=== PATIENT | male | born 1970 | race Two or more races ===

== ENCOUNTER → 2024-04-09 09:55 | Outpatient (BNVA) | payer OTHER, SELFPAY | DX: H60.92 Unspecified otitis externa, left ear (principal); M25.512 Pain in left shoulder; Z23 Encounter for immunization; R06.02 Shortness of breath; H61.21 Impacted cerumen, right ear; R09.81 Nasal congestion | CPT/HCPCS: 90471; 90656; 96127 ==

== ENCOUNTER → 2024-04-09 09:55 | Outpatient (AMB) | payer OTHER, SELFPAY ==
--- NOTE | 2024-04-09 10:04 | MHC.PC.OV ---
Vital Signs 04/09/24 10:04 Height 5 ft 7 in Weight 196 lb 2 oz BMI 30.7 BP 144/80 H Blood Pressure Location Lt brachial Position Sitting Pulse 75 Pulse Source Pulse Oximeter Temp 97.3 F Temp Source Temporal Artery Scan Pulse Oximetry (%) 97 Oxygen Delivery Method Room Air Intake Visit Reasons: New PT Intake Note: Patient is a new patient here to establish care for ?Asthma, SOB. Pt has not seen a PCP in over 5 years. Wheel Cleaner Required: No Accompanied by: Self / Same As Patient Allergies No Known Allergies Allergy (Unverified 04/09/24 10:14) Medication List - Last Reconciled 04/09/24 by SAVANAH Monsalve No Known Home Meds Tobacco use date assessed: 04/09/24 Dental Screening Dental Screen Date: 04/09/24 Did you have a dental visit in the last 12 months?: No Did you have a dental problem in the last 6 months where you did not have access to dental care?: No Was dental information given to patient?: Patient has dentist HPI New PT HPI Details Previous PCP: years ago, cannot remember Last visit: in awhile Last PE: cannot remember Specialist: n/a OBGYN:n/a Past medical history: Denies Medications: Denies taking any medication Family HX: father passed from leukemia in his 40s Problem: The patient is a 53-year-old male with no significant past medical history The patient is presenting to [facility] care Reports that he has been to the doctors in a while and can not remember when was his last physical exam Reports that yesterday was shoveling snow and he noted some shortness of breath Reports that in the past he went to urgent care for respiratory issues and they told him that he was wheezing He was given prednisone with positive effects The patient reports that he noticed that his shortness of breath seems to correlate with cold weather and triggers a cough as well Left shoulder: Reports that a soreness intermittently to posterior left shoulder and the trapezius region Patient reports that he sleeps on that side mostly but he is not sure if it is muscular heartburn: The patient reports heartburn with certain types of foods, occurs 2 to 3 times a week Reports that he has used Zantac with some relief and has been trying not to eat close to bedtime recently he did 14 days on prilosec and he has not had heartburn for a while since. On exam: right ear is completely blocked with wax, left ear with some build up of wax and red irritated area-reports pain with pulling on left ear. reports that right ear hurts some times when he goes in the pool. Reports nasal congestion intermittently and coughing in the mornings at times will order Debrox ear drops for right ear and ofloxacin drops to left ear [facility] Social History Housing: Apartment Patient Tobacco Use Status: Never used Tobacco e-Cigarette/Vaping Use: Never Used service: Yes ([employer]) Current occupational status: employed Cognitive needs: No Hearing needs: No Vision needs: No Questionnaire PHQ-9 Over the last 2 weeks, how often have you been bothered by any of the following problems? 1. Little interest or pleasure in doing things: not at all 2. Feeling down, depressed, or hopeless: not at all 3. Trouble falling or staying asleep, or sleeping too much: not at all 4. Feeling tired or having little energy: not at all 5. Poor appetite or overeating: not at all 6. Feeling bad about yourself - or that you are a failure or have let yourself or your family down: not at all 7. Trouble concentrating on things, such as reading the newspaper or watching television: not at all 8. Moving or speaking so slowly that other people could have noticed. Or the opposite - being so fidgety or restless that you have been moving around a lot more than usual: not at all 9. Thoughts that you would be better off or of hurting yourself in some way: not at all Total score: 0 Depression Screening Interpretation: Negative Depression Screening Done: Yes 32341 - PHQ-9 Billing: Yes Source: Developed by Drs. Phong Zapata, Sapna Blake, Toney Claudio and colleagues, with an educational augustina from [employer]. Thrive Questionnaire Date Thrive assessed: 04/09/24 I am a: Patient What is your living situation today?: I have a steady place to live Within the past 12 months, did the food you bought not last and you didn't have the money to get more?: Never true Within the past 12 months, did you worry whether your food would run out before you got money to buy more?: Never true Do you have trouble paying for medicines?: No Do you have trouble getting transportation to medical appointments?: No Do you have trouble paying your heating and electricity bill?: No Do you have trouble taking care of your child, family member or friend?: No Do you have trouble with day-to-day activities such as bathing, preparing meals, shopping, managing finances, etc.?: No Are you currently unemployed and looking for a job?: No Are you interested in more education?: No Please select the resources that you would like help with: None Currently or been in a relationship where the following occur: No concerns reported THRIVE Score: 0 AUDIT C Alcohol Use Questionnaire (AUDIT-C) 1. How often do you have a drink containing alcohol?: Monthly or less 2. How many drinks containing alcohol do you have on a typical day when you are drinking?: 3 or 4 3. How often do you have six or more drinks on one occasion?: Never Total Score: 2 KAREN-7 AMB Questionnaire KAREN-7 Date KAREN - 7 assessed: 04/09/24 Feeling nervous, anxious, or on edge: 0 = Not at all Not being able to stop or control worryin = Not at all Worrying too much about different things: 0 = Not at all Trouble relaxin = Several days Being so restless that it is hard to sit still: 0 = Not at all Becoming easily annoyed or irritable: 0 = Not at all Feeling afraid as if something awful might happen: 0 = Not at all Total KAREN-7 score (0-4 normal; 5-9 mild; 10-14 moderate; 15-21 severe): 1 Source: Developed by Drs. Phong Zapata, Sapna Blake, Toney Claudio and colleagues, with an educational augustina from [employer]. KAREN-7 Assessment Billing KAREN-7 Assessment Tool: KAREN-7 Assessment 37575 Review of Systems Const Details: Denies chills, Denies fatigue, Denies fever(s), Denies headache(s) and Denies weakness HEENT Denies change in vision, Denies dizziness, Denies headache(s), Denies hearing loss, +pain with pulling on left ear, intermittent nasal congestion, Denies sinus pain, Denies sinus pressure and Denies sore throat Card Denies chest pain, Denies lightheadedness, reports sob with exertion (noticed when he was showeling show and cool weather) and Denies other (palpitations) Resp + cough intermittently in the mornings, reports sob with exertion (noticed when he was showeling show and cool weather) and Denies wheezing GI Denies abdominal pain, Denies melena, Denies hematochezia, Denies change in bowel habits, +dyspepsia (intermittent heartburn with certain foods) and Denies nausea Denies hematuria and Denies dysuria Musc Denies abnormal gait, +myalgias (Reports that a soreness intermittently to posterior left shoulder and the trapezius region) +arthralgias-left shoulder, Denies numbness and Denies tingling Skin/Breast Denies rash, Denies unusual bruising and Denies wounds Neuro Denies abnormal gait, Denies dizziness, Denies headache(s), Denies memory loss, Denies numbness, Denies Sensory deficit (Neuro), Denies tingling and Denies weakness Psych Denies anxiety, Denies depression and Denies memory loss Endo Denies cold intolerance, Denies fatigue, Denies heat intolerance, Denies polydipsia and Denies polyuria Darren/Lymph Denies easy bleeding and Denies easy bruising Aller/Immun Denies wheezing Physical exam (Primary Care) Vital Signs: Last Vital Signs Temp 97.3 F 04/09/24 10:04 Pulse 75 04/09/24 10:04 BP 144/80 H 04/09/24 10:04 Pulse Ox 97 04/09/24 10:04 Oxygen Delivery Method Room Air 04/09/24 10:04 BMI result Body Mass Index 30.7 Tobacco/Smoking Status: Tobacco use Status Tobacco use date assessed 04/09/24 04/09/24 10:11 Patient Tobacco Use Status Never used Tobacco 04/09/24 10:11 e-Cigarette/Vaping Use Never Used 04/09/24 10:11 PHQ-9: PHQ-9 Score PHQ-9: Total score 0 04/09/24 10:26 Depression Screening Interpretation: Negative Thrive Assessment: Date of Thrive Assessment Date Thrive assessed 04/09/24 04/09/24 10:05 Currently or been in a relationship where the following occur: No concerns reported Const Other: General: no acute distress, well developed, alert and awake Nutritional Appearance: well nourished Orientation/consciousness: patient oriented x3 HENMT Head: Yes normocephalic and Yes atraumatic Ears: hearing grossly normal bilaterally Other: right ear blocked with cerumen, left ear canal with dried up, brown cerumen and irritated, erythema area General nose exam: Normal external nose present and bilateral nares erythematous with boggy turbinates Mouth: Normal oral and palatal mucosa present and moist mucous membranes Teeth and gingiva: dentition normal Throat: Yes oropharynx normal Eyes Pupils: Equal, round and reactive pupils present and Pupil accommodation reflex normal EOM: EOMs intact bilaterally Neck Neck: Yes normal visual inspection, Yes no lymphadenopathy and Yes trachea midline Thyroid: Thyroid normal Carotids: no bruits Lymphatic: no lymphadenopathy noted Resp Effort & Inspection: normal respiratory effort Auscultation: clear to auscultation bilaterally Cardio Rate: regular rate Rhythm: regular rhythm Heart sounds: S1 normal heart sound present, S2 normal heart sound present, no gallops, no murmurs and no rubs GI Palpation (GI): Abdomen is soft and nontender to palpation Auscultation: normal bowel sounds General: Yes no CVA tenderness Back/Spine/Pelvis Back: no CVA tenderness Cervical Spine: cervical ROM normal and No Cervical spine tenderness Thoracic/Lumbar Spine: No lumbar spinal tenderness Other: Left shoulder +ROM, no edema, no erythema, negative empty can test and cross shoulder test Skin General: warm and dry. Normal skin color. Normal skin turgor Lesions: no lesions Nails: normal Extrem General: Yes normal to inspection, No edema and No calf tenderness Psych Appearance: grossly normal Affect: normal affect Attitude: cooperative Thought process: Normal thought process present Office Procedures Flu Questionnaire Does the patient have a severe egg allergy?: No Does the patient have severe life threatening allergies?: No Does the patient have a fever or illness today?: No Has the patient ever had Guillain-[place] Syndrome?: No Has the patient ever had any past reaction to a flu shot?: No Immunizations Fluarix Triv [id number] (PF) 45 mcg (15 mcg x 3)/0.5 mL IM syringe Performing Provider: SAVANAH Monsalve Performing Location[place] [facility] Administered by: QUAN Stovall on 04/09/24 10:07 Dose Route Admin Location Dispensed Lot Number Expiration Date NDC Grease Packer 0.5 mL IM Left Deltoid 0.5 mL [id number] 08/30/24 [id number] [employer] VIS Given Date VIS Provided VIS Publication Date 04/09/24 Single Vaccine 20 Eligibility Eligibility Date Funding Source Not [facility] Eligible 04/09/24 Private Coding Level of Care Code New Pt Level 4 (73205) Diagnoses Otitis externa of left ear, unspecified chronicity, unspecified type H60.92 Otitis externa type: unspecified type Chronicity: unspecified Laterality: left Left shoulder pain, unspecified chronicity M25.512 Chronicity: unspecified SOB (shortness of breath) on exertion R06.02 Right ear impacted cerumen H61.21 Nasal congestion R09.81 Additional Codes KAREN-7 Assessment Billing - KAREN-7 Assessment Tool: KAREN-7 Assessment 99254 ([id number]) PHQ-9 - 14932 - PHQ-9 Billing: Yes ([id number]) Time Spent (min) 34 Assessment & Plan Assessment & Plan (1) Otitis externa: Code(s): H60.90 - Unspecified otitis externa, unspecified ear Category: Medical Qualifiers: Otitis externa type: unspecified type Chronicity: unspecified Laterality: left Qualified Code(s): H60.92 - Unspecified otitis externa, left ear Plan: left ear with some build up of wax and red irritated area-reports pain with pulling on left ear Ofloxacin eardrops b.i.d. (2) Left shoulder pain: Code(s): M25.512 - Pain in left shoulder Category: Medical Qualifiers: Chronicity: unspecified Qualified Code(s): M25.512 - Pain in left shoulder Plan: No red flags noted. Appears to be muscular. Encourage patient to modify activity like not sleeping on the left side May use warm compresses as needed with 20 minutes on and off technique. May use NSAIDs as needed. Contact office if pain worsens or not relenting (3) SOB (shortness of breath) on exertion: Code(s): R06.02 - Shortness of breath Category: Medical Plan: Reports that yesterday was shoveling snow and he noted some shortness of breath Reports that in the past he went to urgent care for respiratory issues and they told him that he was wheezing He was given prednisone with positive effects The patient reports that he noticed that his shortness of breath seems to correlate with cold weather and triggers a cough as well Albuterol sulfate 90 mcg/actuation 2 inhalation Q 4-6 hours as needed Contact the office if symptoms becomes more frequent (4) Right ear impacted cerumen: Code(s): H61.21 - Impacted cerumen, right ear Category: Medical Plan: Encouraged the patient to get debrox ear drops otc for right ear. The patient right ear is completely blocked. Will re-assess when the patient return for physical evaluation. (5) Nasal congestion: Code(s): R09.81 - Nasal congestion Category: Medical Plan fluticasone propionate 50 mcg/actuatin 1 spray intranasal bid Orders: Orders Lipid Panel 04/09/24 Z00.00 - Encounter for general adult medical examination without abnormal findings TSH reflex Free T4 04/09/24 Z00.00 - Encounter for general adult medical examination without abnormal findings Influenza [id number] Immunization 04/09/24 Z23 - Encounter for immunization Complete Blood Count Auto Diff 04/09/24 Z00.00 - Encounter for general adult medical examination without abnormal findings Comprehensive [place]. Panel Fast 04/09/24 Z00.00 - Encounter for general adult medical examination without abnormal findings Vitamin D 25-OH Total 04/09/24 Z00.00 - Encounter for general adult medical examination without abnormal findings UA CC w/rflx Micro + Cult 04/09/24 Z00.00 - Encounter for general adult medical examination without abnormal findings PSA,Total (Free>4and<10) 04/09/24 Z00.00 - Encounter for general adult medical examination without abnormal findings Glucose Fasting 04/09/24 Z00.00 - Encounter for general adult medical examination without abnormal findings Medications: New fluticasone propionate 50 mcg/actuation administer into each nostril 1 spray intranasal BID 16 grams 2RF ofloxacin 0.3% 10 drps otic (ears) BID 14 days 10 mL 0RF albuterol sulfate 90 mcg/actuation 2 inhalations inhalation Q4-6H PRN 1 ea 1RF shortness of breath or wheezing
== END | disposition home or self-care (01) ==

== ENCOUNTER 2024-04-16 07:21 | Outpatient (REF) | payer OTHER, SELFPAY ==
[2024-04-16 07:35] LABS: MANUAL DIFF FLAG NO
[2024-04-16 07:50] LABS: Basophils Percent Auto 0.5 % (0-2); Eosinophils Absolute Auto 0.1 X10*3/uL (0.0-0.4); Hematocrit 41.5 % (42.0-52.0); Hemoglobin 14.8 g/dl (14.0-18.0); Imm Gran Abs Auto 0.02 X10*3/uL (0.00-0.03); Imm Gran Pct Auto 0.3 % (0.0-0.4); Lymphocytes Absolute Auto 1.7 X10*3/uL (1.2-4.9); Lymphocytes Percent Auto 27.1 % (20-40); Mean Corpuscular HGB Conc 35.7 g/dl (31.0-36.0); Mean Corpuscular Hemoglobin 30.7 pg (27.0-33.0); Mean Corpuscular Volume 86.1 fL (80.0-98.0); Mean Platelet Volume 9.7 fL (9.4-12.4); Monocytes Absolute Auto 0.7 X10*3/uL (0.1-1.2); Monocytes Percent Auto 10.7 % (2-11); Neutrophils Absolute Auto 3.8 x10*3/uL (2.0-8.3); Neutrophils Percent Auto 60.4 % (45-73); Platelet Count 260 X10*3/uL (160-400); Red Blood Count 4.82 X10*6/uL (4.60-5.80); Red Cell Distribution Width 12.8 % (11.0-16.0); White Blood Count 6.3 X10*3/uL (4.8-10.8)
[2024-04-16 08:08] LABS: Appearance Urine Clear; Color Urine Yellow; Glucose Urine UA 250 mg/dL (Negative); Leukocyte Esterase Urine Negative (Negative); Nitrite Urine Negative (Negative); PH 5.5 (5.0-9.0); Urine Blood Negative (Negative); Urine Ketones Negative (Negative); Urine Protein Negative (Neg-Trace)
[2024-04-16 08:16] LABS: Alanine Aminotransferase 27 U/L (0-40); Albumin Level 4.6 g/dL (3.5-5.0); Alkaline Phosphatase 60 U/L (39-117); Anion Gap 12 (12-20); Aspartate Amino Transferase 19 U/L (5-37); Bilirubin Total 0.4 mg/dL (0.0-1.0); Blood Urea Nitrogen 12 mg/dL (9-16); Calcium 9.2 mg/dL (8.4-10.2); Carbon Dioxide 22 mmol/L (22-29); Chloride 106 mmol/L (96-108); Cholesterol 208 mg/dL (<200); Estimated Glomerular Filt Rate > 60; Glucose Fasting 197 mg/dL (60-99); HDL Cholesterol 41 mg/dL (>40); LDL Cholesterol Calculated 149 mg/dL (<100); Potassium 4.2 mmol/L (3.3-5.1); Sodium 136 mmol/L (135-145); Triglycerides 90 mg/dL (<150)
[2024-04-16 08:34] LABS: TSH reflex Free T4 0.68 uIU/mL (0.32-4.0); Vitamin D 25-OH Total 18.6 ng/mL (>30)
== END 2024-04-16 07:22 | disposition home or self-care (01) ==
LOC: HO.LAB 07:21
DX: Z00.00 Encounter for general adult medical examination without abnormal findings (principal); Z12.5 Encounter for screening for malignant neoplasm of prostate; Z13.6 Encounter for screening for cardiovascular disorders
CPT/HCPCS: 36415; 80053; 80061; 81003; 82306; 84153; 84443; 85025

== ENCOUNTER 2024-04-23 09:25 | Outpatient (AMB) | payer OTHER, SELFPAY ==
--- OUTSIDE RECORDS SUMMARY | 2024-04-23 09:58 | XMS_ITS | Clinical Summary ---
Author Organization [facility] ity Address [address] [place] [address] Care Team Providers [employer] Name Role Phone Unavailable Primary Care Provider Unavailabl e Social History Tobacco Use Types Packs/Day Years Used Date Smoking Tobacco: Never Assessed Sex and Gender Information Value Date Recorded Sex Assigned at Not on file Legal Sex Male 4:18 AM EST Gender Identity Not on file Sexual Orientation Not on file Plan of Treatment Health Maintenance Due Date Last Done Comments DTaP,Tdap,and Td Vaccines (1 - Tdap) 1988 Hepatitis B Vaccines (1 of 3 - 19+ 3-dose series) 1988 Pneumococcal Vaccine: 50+ Ye ars (1 of 1 - PCV) 09/17/2019 Zoster Vaccines (1 of 2) 09/17/2019 COVID-19 Vaccine ( - 2023-2 5 season) 2023 Influenza Vaccine (#1) 2023 HIB Vaccines Aged Out No longer eligi ble based on patient's age to complete this topic HPV Vaccines Aged Out No longer eligi ble based on patient's age to complete this topic Hepatitis A Vaccines Aged Out No long er eligible based on patient's age to complete this topic IPV Vaccines Aged Out No longer eligi ble based on patient's age to complete this topic MMR Vaccines Aged Out No longer eligi ble based on patient's age to complete this topic Meningococcal ACWY Vaccine Aged Out N o longer eligible based on patient's age to complete this topic Meningococcal B Vacine Aged Out No lo nger eligible based on patient's age to complete this topic Pneumococcal Vaccine: Pediat rics (0 to 5 Years) and At-Risk Patients (6 to 64 Years) Aged Out No longer eligible b ased on patient's age to complete this topic RSV Immunization Patients Un edwige 20 months Aged Out No longer eligible b ased on patient's age to complete this topic Varicella Vaccines Aged Out No longer eligible based on patient's age to complete this topic
[2024-04-23 09:59] VITALS: BP 126/80; PULSE 78; TEMP 36.4; O2SAT 96; BMI 31.3
--- NOTE | 2024-04-23 09:59 | A.OFFPC_ITS ---
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 Accompanied by: Self / Same As Patient Allergies No Known Allergies Allergy (Verified 04/23/24 10:16) Medication List - Last Reconciled 04/23/24 by SAVANAH Monsalve albuterol sulfate 90 mcg/actuation 2 inhalations inhalation Q4-6H PRN fluticasone propionate 50 mcg/actuation 1 spray intranasal BID ofloxacin 0.3% 10 drps otic (ears) BID 14 days Tobacco use date assessed: 04/23/24 Dental Screening Dental Screen Date: 04/23/24 Did you have a dental visit in the last 12 months?: No Did you have a dental problem in the last 6 months where you did not have access to dental care?: No Was dental information given to patient?: No HPI annual physical HPI Details Dentist: josie will make an appt Eye: reports that he had not done one in awhile Snellen: Right: Left: Corrected vision: STI screening: Colonoscopy:josie will order Pap Smer: PHQ-9: Flu: up to date COVID: x2 Tdap: 2023 Diet: regular, trying to cut back Exercise: will start back going to the gym Patient is a 53-year-old male presenting for an annual physical Review labs and screening with the patient The patient fasting glucose was 197 A1c done in office 9.8% The patient was informed that he is diabetic and was started on metformin a 1000 mg b.i.d. [facility] Medical History (Updated 04/25/24 @ 22:37 by SAVANAH Monsalve) Heart burn Social History Housing: Apartment Patient Tobacco Use Status: Never used Tobacco e-Cigarette/Vaping Use: Never Used service: Yes ([employer]) Current occupational status: employed Cognitive needs: No Hearing needs: No Vision needs: No Questionnaire PHQ-9 Over the last 2 weeks, how often have you been bothered by any of the following problems? 1. Little interest or pleasure in doing things: not at all 2. Feeling down, depressed, or hopeless: not at all 3. Trouble falling or staying asleep, or sleeping too much: not at all 4. Feeling tired or having little energy: not at all 5. Poor appetite or overeating: not at all 6. Feeling bad about yourself - or that you are a failure or have let yourself or your family down: not at all 7. Trouble concentrating on things, such as reading the newspaper or watching television: not at all 8. Moving or speaking so slowly that other people could have noticed. Or the opposite - being so fidgety or restless that you have been moving around a lot more than usual: not at all 9. Thoughts that you would be better off or of hurting yourself in some way: not at all Total score: 0 Depression Screening Interpretation: Negative Depression Screening Done: Yes 89624 - PHQ-9 Billing: Yes Source: Developed by Drs. Phong Zapata, Sapna Blake, Toney Claudio and colleagues, with an educational augustina from [employer]. Thrive Questionnaire Date Thrive assessed: 04/23/24 I am a: Patient What is your living situation today?: I have a steady place to live Within the past 12 months, did the food you bought not last and you didn't have the money to get more?: Never true Within the past 12 months, did you worry whether your food would run out before you got money to buy more?: Never true Do you have trouble paying for medicines?: No Do you have trouble getting transportation to medical appointments?: No Do you have trouble paying your heating and electricity bill?: No Do you have trouble taking care of your child, family member or friend?: No Do you have trouble with day-to-day activities such as bathing, preparing meals, shopping, managing finances, etc.?: No Are you currently unemployed and looking for a job?: No Are you interested in more education?: No Please select the resources that you would like help with: None Currently or been in a relationship where the following occur: No concerns reported THRIVE Score: 0 AUDIT C Alcohol Use Questionnaire (AUDIT-C) 1. How often do you have a drink containing alcohol?: Monthly or less 2. How many drinks containing alcohol do you have on a typical day when you are drinking?: 3 or 4 3. How often do you have six or more drinks on one occasion?: Never Total Score: 2 KAREN-7 AMB Questionnaire KAREN-7 Date KAREN - 7 assessed: 04/23/24 Feeling nervous, anxious, or on edge: 0 = Not at all Not being able to stop or control worryin = Not at all Worrying too much about different things: 0 = Not at all Trouble relaxin = Several days Being so restless that it is hard to sit still: 0 = Not at all Becoming easily annoyed or irritable: 0 = Not at all Feeling afraid as if something awful might happen: 0 = Not at all Total KAREN-7 score (0-4 normal; 5-9 mild; 10-14 moderate; 15-21 severe): 1 Source: Developed by Drs. Phong Zapata, Sapna Blake, Toney Claudio and colleagues, with an educational augustina from [employer]. KAREN-7 Assessment Billing KAREN-7 Assessment Tool: KAREN-7 Assessment 26219 Review of Systems Const Details: Denies chills, Denies fatigue, Denies fever(s), Denies headache(s) and Denies weakness HEENT Denies change in vision, Denies dizziness, Denies headache(s), Denies hearing loss, Denies nasal congestion, Denies sinus pain, Denies sinus pressure and Denies sore throat Card Denies chest pain, Denies lightheadedness, + mild dyspnea when shoveling in the snow and Denies other (palpitations) Resp Denies cough, Denies dyspnea and Denies wheezing GI Denies abdominal pain, Denies melena, Denies hematochezia, Denies change in bowel habits, +dyspepsia (infrequent) and Denies nausea Denies hematuria and Denies dysuria Musc Denies abnormal gait, Denies myalgias, +arthralgias (mild soreness to left shoulder), Denies numbness and Denies tingling Skin/Breast Denies rash, Denies unusual bruising and Denies wounds Neuro Denies abnormal gait, Denies dizziness, Denies headache(s), Denies memory loss, Denies numbness, Denies Sensory deficit (Neuro), Denies tingling and Denies weakness Psych Denies anxiety, Denies depression and Denies memory loss Endo Denies cold intolerance, Denies fatigue, Denies heat intolerance, Denies polydipsia and Denies polyuria Darren/Lymph Denies easy bleeding and Denies easy bruising Aller/Immun Denies wheezing Physical exam (Primary Care) Vital Signs: Last Vital Signs Temp 97.5 F 04/23/24 09:59 Pulse 78 04/23/24 09:59 BP 126/80 04/23/24 09:59 Pulse Ox 96 04/23/24 09:59 Oxygen Delivery Method Room Air 04/23/24 09:59 BMI result Body Mass Index 31.3 Tobacco/Smoking Status: Tobacco use Status Tobacco use date assessed 04/23/24 04/23/24 10:04 Patient Tobacco Use Status Never used Tobacco 04/23/24 10:04 e-Cigarette/Vaping Use Never Used 04/23/24 10:04 PHQ-9: PHQ-9 Score PHQ-9: Total score 0 04/23/24 23:20 Depression Screening Interpretation: Negative Thrive Assessment: Date of Thrive Assessment Date Thrive assessed 04/23/24 04/23/24 10:04 Currently or been in a relationship where the following occur: No concerns reported Const Other: General: no acute distress, well developed, alert and awake Nutritional Appearance: well nourished Orientation/consciousness: patient oriented x3 HENMT Head: Yes normocephalic and Yes atraumatic Ears: hearing grossly normal bilaterally and TM's normal bilaterally General nose exam: Normal external nose present and Normal nares present Mouth: Normal oral and palatal mucosa present and moist mucous membranes Teeth and gingiva: dentition normal Throat: Yes oropharynx normal Eyes Pupils: Equal, round and reactive pupils present and Pupil accommodation reflex normal EOM: EOMs intact bilaterally Neck Neck: Yes normal visual inspection, Yes no lymphadenopathy and Yes trachea midline Thyroid: Thyroid normal Carotids: no bruits Lymphatic: no lymphadenopathy noted Chest Chest palpation & inspection: normal inspection of the chest Resp Effort & Inspection: normal respiratory effort Auscultation: clear to auscultation bilaterally Cardio Rate: regular rate Rhythm: regular rhythm Heart sounds: S1 normal heart sound present, S2 normal heart sound present, no gallops, no murmurs and no rubs Bruits: no abdominal aortic bruits and no carotid bruits GI Palpation (GI): No Abdominal aortic bruit present, Soft to palpation, nontender, No hepatosplenomegaly present and No Rebound tenderness present Auscultation: normal bowel sounds General: Yes no CVA tenderness Back/Spine/Pelvis Back: no CVA tenderness Cervical Spine: cervical ROM normal and No Cervical spine tenderness Thoracic/Lumbar Spine: thoraco-lumbar ROM normal, No pain with thoraco-lumbar ROM, No thoracic spinal tenderness and No lumbar spinal tenderness Skin General: warm and dry. Normal skin color. Normal skin turgor Lesions: no lesions Rashes: no rashes Trauma: no lacerations or abrasions Wounds: no wounds Nails: normal Neuro General: patient oriented x3, gait normal and CN's II-XI intact bilaterally Cranial nerves: Yes Equal, round and reactive pupils present Cognition (Neuro): normal cognition Gait exam (Neuro): Normal gait present Motor exam (neuro): 5/5 motor strength present throughout Sensory Exam: No Sensory deficit (Neuro) Deep tendon reflexes (DTR's): Right patellar reflex intensity grade: 2+ and Left patellar reflex intensity grade: 2+ Extrem General: Yes normal to inspection, No edema and No calf tenderness left: +ROM, no edema, no erythema, no red flags noted Psych Appearance: grossly normal Affect: normal affect Attitude: cooperative Thought process: Normal thought process present Results AMB Hemoglobin A1c AMB Hemoglobin A1c 9.8 % Last Edit by ALFA Coyle on 04/23/24 10 :34 Results Reviewed Results Reviewed: Laboratory Last Values Hgb A1c (Clinic) 9.8 % (4.0-6.0) H 04/23/24 10:25 Coding Level of Care Code Est Pt Prev Care 40-64y(95382) Diagnoses Annual physical exam Z00.00 Type 2 diabetes mellitus without complication, without long-term current use of insulin E11.9 Diabetes mellitus type: type 2 Diabetes mellitus alf insulin use: without long term care social worker use Diabetes mellitus complication status: without complication Left shoulder pain, unspecified chronicity M25.512 Chronicity: unspecified SOB (shortness of breath) on exertion R06.02 Nasal congestion R09.81 Vitamin D deficiency E55.9 Elevated LDL cholesterol level E78.00 Bilateral hearing loss due to cerumen impaction H61.23 Heart burn R12 Additional Codes KAREN-7 Assessment Billing - KAREN-7 Assessment Tool: KAREN-7 Assessment [id number] ([id number]) PHQ-9 - 23452 - PHQ-9 Billing: Yes ([id number]) Time Spent (min) 34 Assessment & Plan Assessment & Plan (1) Annual physical exam: Code(s): Z00.00 - Encounter for general adult medical examination without abnormal findings Category: Medical Plan: The patient is here for annual physical reviewed preventative guidelines and recent labs (2) Diabetes mellitus: Code(s): E11.9 - Type 2 diabetes mellitus without complications Category: Medical Qualifiers: Diabetes mellitus type: type 2 Diabetes mellitus long term care social worker insulin use: without long term care social worker use Diabetes mellitus complication status: without complication Qualified Code(s): E11.9 - Type 2 diabetes mellitus without complications Plan: The patient fasting glucose was 197 A1c done in office 9.8% The patient was informed that he is diabetic and was started on metformin a 1000 mg b.i.d. We will recheck labs in 3 months (3) Left shoulder pain: Code(s): M25.512 - Pain in left shoulder Category: Medical Qualifiers: Chronicity: unspecified Qualified Code(s): M25.512 - Pain in left shoulder Plan: No red flags noted. Appears to be muscular. Encourage patient to modify activity like not sleeping on the left side May use warm compresses as needed with 20 minutes on and off technique. May use NSAIDs as needed. Contact office if pain worsens or not relenting (4) SOB (shortness of breath) on exertion: Code(s): R06.02 - Shortness of breath Category: Medical Plan: Reports that in the past he went to urgent care for respiratory issues and they told him that he was wheezing He was given prednisone with positive effects The patient reports that he noticed that his shortness of breath seems to correlate with cold weather and triggers a cough as well Albuterol sulfate 90 mcg/actuation 2 inhalation Q 4-6 hours as needed Contact the office if symptoms becomes more frequent (5) Nasal congestion: Code(s): R09.81 - Nasal congestion Category: Medical Plan: Continue fluticasone propionate 50 mcg/actuation 1 spray nasally b.i.d. (6) Vitamin D deficiency: Code(s): E55.9 - Vitamin D deficiency, unspecified Category: Medical Plan: vitamin D 18.6 Started cholecalciferol 20 mcg daily We will recheck labs in 3 months (7) Elevated LDL cholesterol level: Code(s): E78.00 - Pure hypercholesterolemia, unspecified Category: Medical Plan: t 208/ldl 149 Discussed with the patient that he is at the range where medication can be started. The patient stated that he started making dietary changes and he is going start going back to the gym (8) Bilateral hearing loss due to cerumen impaction: Code(s): H61.23 - Impacted cerumen, bilateral Category: Medical Plan: cerumen impaction, but both TMs are visible. Encouraged the patient to continue using the debrox to soften the cerumen (9) Heart burn: Code(s): R12 - Heartburn Category: Medical Plan: The patient reports heartburn with certain types of foods, occurs 2 to 3 times a week Reports that he has used Zantac with some relief and has been trying not to eat close to bedtime recently he did 14 days on prilosec and he has not had heartburn for a while since. reinforced dietary restrictions Plan The patient to follow up 3 months and to complete blood work about 1 week before his next appt Orders: Orders AMB Hemoglobin A1c 04/23/ Z13.9 - Encounter for screening, unspecified Comprehensive [place]. Panel Fast 3 Months E55.9 - Vitamin D deficiency, unspecified, E78.00 - Pure hypercholesterolemia, unspecified Vitamin D 25-OH Total 3 Months E55.9 - Vitamin D deficiency, unspecified, E78.00 - Pure hypercholesterolemia, unspecified UA CC w/rflx Micro + Cult 3 Months E55.9 - Vitamin D deficiency, unspecified, E78.00 - Pure hypercholesterolemia, unspecified Lipid Panel 3 Months E55.9 - Vitamin D deficiency, unspecified, E78.00 - Pure hypercholesterolemia, unspecified Hemoglobin A1c 3 Months E55.9 - Vitamin D deficiency, unspecified, E78.00 - Pure hypercholesterolemia, unspecified Glucose Fasting 3 Months E55.9 - Vitamin D deficiency, unspecified, E78.00 - Pure hypercholesterolemia, unspecified Medications: New blood sugar diagnostic (FreeStyle Lite Strips) As directed 10 ea 0RF flash glucose sensor As directed 1 ea 0RF lancets (FreeStyle Lancets) As directed check blood sugar two times a day 50 ea 2RF E11.9 - Type 2 diabetes mellitus without complications flash glucose sensor As directed check blood sugar two times a day 1 ea 0RF E11.9 - Type 2 diabetes mellitus without complications blood sugar diagnostic (FreeStyle Lite Strips) As directed check blood sugar two times a day 50 ea 2RF E11.9 - Type 2 diabetes mellitus without complications omeprazole 20 mg PO DAILY 30 caps 3RF metformin 1,000 mg (2 x 500 mg) PO BID 30 days 120 tabs 3RF cholecalciferol (vitamin D3) 25 mcg PO DAILY 30 caps 3RF lancets (FreeStyle Lancets) As directed 100 ea 0RF
== END 2024-04-23 10:53 | disposition home or self-care (01) ==
DX: Z13.9 Encounter for screening, unspecified (principal)

== ENCOUNTER → 2024-04-23 09:25 | Outpatient (BNVA) | payer OTHER, SELFPAY | DX: Z00.00 Encounter for general adult medical examination without abnormal findings (principal); E11.9 Type 2 diabetes mellitus without complications; M25.512 Pain in left shoulder; R06.02 Shortness of breath; R09.81 Nasal congestion; E55.9 Vitamin D deficiency, unspecified; E78.00 Pure hypercholesterolemia, unspecified; H61.23 Impacted cerumen, bilateral; R12 Heartburn | CPT/HCPCS: 83036; 96127 ==

== ENCOUNTER 2024-08-06 10:41 | Outpatient (AMB) | payer OTHER, SELFPAY ==
--- NOTE | 2024-08-06 10:44 | MHC.OFFVIS ---
Vital Signs 08/06/24 10:45 Height 5 ft 7 in Weight 194 lb 0.108 oz BMI 30.4 BP 146/81 H Blood Pressure Location Lt brachial Position Sitting Pulse 77 Intake Visit Reasons: colo screening Intake Note: Jeronimo presents in the office as a new patient for a colonoscopy screening. CC: He states he suffers from some heartburn - never had a colonoscopy. Takes omeprazole but it does not help him! Fire Alarm Technician Required: No Allergies No Known Allergies Allergy (Verified 08/06/24 10:48) Medication List - Last Reconciled 08/06/24 by Fina Obregon CNP albuterol sulfate 90 mcg/actuation 2 inhalations inhalation Q4-6H PRN bisacodyl 5 mg PO ONCE 1 day blood sugar diagnostic (FreeStyle Lite Strips) As directed check blood sugar two times a day cholecalciferol (vitamin D3) 25 mcg PO DAILY flash glucose sensor As directed check blood sugar two times a day fluticasone propionate 50 mcg/actuation 1 spray intranasal BID lancets (FreeStyle Lancets) As directed check blood sugar two times a day metformin 1,000 mg (2 x 500 mg) PO BID 30 days omeprazole 40 mg PO DAILY polyethylene glycol 3350 (Miralax) 238 grams PO ONCE HPI HPI colo screening: Details: Patient is a 53-year-old male with PMH of diabetes, hyperlipidemia and vitamin-D deficiency. Referred by PCP for GERD and pre colonoscopy screening. Pt reports h/o acid reflux x ~10 yrs, with heartburn and burping, sometimes accompanied by regurgitation, nausea, and occasional sensation of impending emesis. Symptoms typically correlated with stress and intake of greasy foods or caffeine. Pt notes triggers include coffee, previously energy drinks (now eliminated), with current intake of 1 medium coffee QAM. Some symptoms improvement with upright posture post-prandially and avoidance of triggers. Severity is intermittent, described as moderate, variable by exposure to triggers. Taking omeprazole 20mg oral daily (previously QAM, recently PM post-dinner), but not with optimal timing (non-fasted state). Denies dysphagia or chronic vomiting. Reports daily BMs, consistency described as not completely loose, not solid (soft, formed), pt reports this as personal baseline. No blood in stools, no rectal pain, no straining, no new constipation or diarrhea. Denies abdominal pain, no hx of nausea or vomiting except as associated w/ heartburn episodes. Pt notes improved energy w/ regular exercise, recently less physically active. Current stressors primarily work-related, managed with hobbies and planning to resume gym. Patient denies: fever/chills, appetite changes, dysphasia, unintentional wt loss or melena/hematochezia. Social History - Diet: Eats breakfast daily, regular coffee (1 medium QAM), avoids energy drinks. No discussion of other dietary patterns, avoids alcohol. No mention of vegetarianism or food allergies. - Alcohol/Tobacco/Drug Use: Denies current or prior tobacco, vaping, alcohol, marijuana, rec drug use. 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 - Exercise: Formerly regular gym attendance, plans to resume. - Hydration: Water, Gatorade. No excess juice/soda noted. PFSH Medical History Heart burn Surgical History Hx of appendectomy Social History Housing: Apartment Patient Tobacco Use Status: Never used Tobacco e-Cigarette/Vaping Use: Never Used service: Yes ([employer]) Current occupational status: employed Cognitive needs: No Hearing needs: No Vision needs: No Review of Systems Const Reports as per HPI ENT Reports as per HPI Card Reports as per HPI Resp Reports as per HPI GI Reports as per HPI Reports as per HPI Physical Exam Vital Signs: Last Vital Signs Pulse 77 08/06/24 10:45 BP 146/81 H 08/06/24 10:45 BMI result Body Mass Index 30.4 Const General: healthy appearing, no acute distress and well developed Nutritional Appearance: well nourished Orientation/consciousness: patient oriented x3 HEENT Head: Yes normal to inspection, Yes normocephalic and Yes atraumatic Face and sinus: Yes normal facial exam Eyes General: appearance normal, both eyes and all related structures Neck Neck: Yes normal visual inspection Resp Effort & Inspection: normal respiratory effort, able to speak in complete sentences, no tracheal deviation and symmetric chest movement Auscultation: clear to auscultation bilaterally Cardio Jugular venous distension: no JVD Rate: regular rate Rhythm: regular rhythm Heart sounds: S1 normal heart sound present, S2 normal heart sound present, no gallops and no murmurs GI Inspection: Yes normal to inspection and No distended Palpation (GI): Soft to palpation, not firm, nontender and No hepatosplenomegaly present Auscultation: normal bowel sounds Neuro General: patient oriented x3 Gait exam (Neuro): Normal gait present Psych Appearance: grossly normal Mental Status: mental status grossly normal Speech and movement: Normal speech and movement present Affect: normal affect Attitude: cooperative Thought process: Normal thought process present Thought content: Normal thought content present Insight: Good insight present (Psych) Judgement: Good judgement present (Psych) Assessment & Plan Assessment & Plan (1) Heart burn: Code(s): R12 - Heartburn Category: Medical Plan: Persistent reflux sx x10y w/ incomplete control on PPI, non-ideal dosing Additional Tests: EGD scheduled (concurrent w/ colonoscopy) for mucosal assessment, R/O esophagitis/Enriquez?s/HH Medications: - Increase Omeprazole to 40mg oral daily, instruct to take on empty stomach 30 min pre-breakfast Lifestyle Modifications: - Reduce caffeine (coffee to small QAM if possible), avoid energy drinks, minimize trigger foods (greasy, spicy, acidic) - Small, frequent meals; remain upright x2h post-prandially; avoid late meals, walk after dinner - Encourage return to regular exercise for stress management and GI benefit - Increase water intake (2) Encounter for colorectal cancer screening: Code(s): Z12.11 - Encounter for screening for malignant neoplasm of colon; Z12.12 - Encounter for screening for malignant neoplasm of rectum Category: Medical Plan: Due for index screening colonoscopy. Diagnostic Tests: Prescriptions for laxative tablets and Miralax sent to pharmacy; instructions for Gatorade purchase and clear liquid diet given. Medications: - understands to hold metformin 7 days prior to procedure. - avoid NSAIDs/Aspirin x 7 days pre-procedure. Use Tylenol if needed for pain. Patient educated on procedure preparation, including avoiding certain foods and ensuring clear liquid intake. Advised on necessity for ride post-procedure due to sedation. (3) Diabetes mellitus: Code(s): E11.9 - Type 2 diabetes mellitus without complications Category: Medical Qualifiers: Diabetes mellitus type: type 2 Diabetes mellitus termite control representative insulin use: without jail use Diabetes mellitus complication status: without complication Qualified Code(s): E11.9 - Type 2 diabetes mellitus without complications Plan: Poor glycemic control (A1c 9.8%), temporary Rx Metformin (unclear duration), missed Vit D refills/labs Additional Tests: Complete outstanding laboratory testing as ordered by PCP Medications: Continue Metformin oral daily as per PCP (hold morning of colonoscopy) Lifestyle Modifications: Encourage healthy diet, exercise, stress reduction Follow-Up: PCP f/u scheduled 10/01; ensure prescriptions renewed/outstanding labs completed (4) Vitamin D deficiency: Code(s): E55.9 - Vitamin D deficiency, unspecified Category: Medical Plan: Hx low Vit D; supplementation interrupted d/t unfilled Rx Additional Tests: Await repeat Vit D level as per PCP Medications: Hold new Rx until levels rechecked by PCP Follow-Up: with PCP Plan Shared decision-making to follow up after procedure are sooner as needed Time: I spent a total of 30 minutes on the date of encounter which includes: Preparing to see the patient (reviewed previous documentation, test results and medical history) Performing a medically appropriate exam and/or evaluation Ordering medications, tests, and procedures Documenting clinical information in the health record Medications: New bisacodyl Take four tablets once for 1 day per colonoscopy instructions 5 mg PO ONCE 1 day 4 tabs 0RF polyethylene glycol 3350 (Miralax) per colonoscopy prep instructions 238 grams PO ONCE 238 grams 0RF omeprazole Take one tablet daily. Best taken 30 minutes before meal. 40 mg PO DAILY 90 caps 1RF Coding Level of Care Code New Pt New Pt Level 3 (21185) Patient Type New Diagnoses Heart burn R12 Encounter for colorectal cancer screening Z12.11; Z12.12 Type 2 diabetes mellitus without complication, without long-term current use of insulin E11.9 Diabetes mellitus type: type 2 Diabetes mellitus jail insulin use: without termite control representative use Diabetes mellitus complication status: without complication Vitamin D deficiency E55.9
[2024-08-06 10:45] VITALS: BP 146/81; PULSE 77; BMI 30.4
--- OUTSIDE RECORDS SUMMARY | 2024-08-06 11:31 | XMS_ITS | Clinical Summary ---
Author Organization [employer] [facility] ity Address [address] [place] [address] Care Team Providers Care Computer Information Science Professor Name Role Phone Unavailable Primary Care Provider [...] - 2023-2 5 season) 2023 Influenza Vaccine (Season Ended) 2024 HIB Vaccines Aged Out No longer eligi [...] age to complete this topic Meningococcal B Vaccine Aged Out No l onger eligible based on patient's age to complete [...]
== END 2024-08-06 11:17 | disposition home or self-care (01) ==
LOC: HO.HGI 10:42
PROVIDERS: Visit Provider Nurse Practitioner Family
DX: Z01.818 Encounter for other preprocedural examination (principal); Z12.11 Encounter for screening for malignant neoplasm of colon; R12 Heartburn; E11.9 Type 2 diabetes mellitus without complications; E55.9 Vitamin D deficiency, unspecified
CPT/HCPCS: 99203